=== PATIENT | male | born 1980 | race Caucasian/White ===

== ENCOUNTER → 2017-07-28 | Outpatient (CLI) | payer OTHER ==
--- NOTE | 2017-07-28 07:40 | US ---
EXAMINATION TYPE: US abdomen complete DATE OF EXAM: 07/28/2017 COMPARISON: NONE CLINICAL HISTORY: 37-year-old male R74.8 Elevated Liver Enzymes. TECHNIQUE: Multiple sonographic images of the abdomen are obtained. FINDINGS: Liver Length: 16.3 cm Gallbladder Wall: 0.1 cm CBD: 0.3 cm Spleen: 11.1 cm Right Kidney: 11.1 x 3.7 x 4.6 cm Left Kidney: 10.8 x 5.5. xx4.5 cm Pancreas: wnl Liver: Diffuse increased echogenicity. No focal lesion seen. Gallbladder: No abnormal gallbladder distention, wall thickening, pericholecystic fluid, or shadowing calculi. A couple 3 mm mural-based echogenic nodules are present along the anterior gallbladder wall . Evidence for sonographic Quintero's sign: No CBD: wnl Spleen: wnl Right Kidney: No hydronephrosis Left Kidney: No hydronephrosis Upper IVC: wnl Abd Aorta: wnl IMPRESSION: 1. Hepatic steatosis. Correlate with LFTs, lipid profile, and patient risk factors. 2. A couple 3 mm gallbladder wall polyps, probably cholesterol polyps.
== END | disposition home or self-care (01) ==
LOC: RADUSWWP 06:56
PROVIDERS: ATTEND Family Medicine
DX: K76.0 Fatty (change of) liver, not elsewhere classified (principal); K82.4 Cholesterolosis of gallbladder
CPT/HCPCS: 76700

== ENCOUNTER 2025-01-08 05:56 | Emergency (ER) | payer OTHER ==
[2025-01-08 06:06] VITALS: BP 124/83; PULSE 80; RESP 18; TEMP 97.5
[2025-01-08] MEDS: FLUORESCEIN STRIPS 1 MG STRIP RIGHT EYE ONE (06:15)
[2025-01-08] MEDS: PROPARACAINE 0.5% OPHTH DROPS 15 ML BTL RIGHT EYE STA (06:16)
--- NOTE | 2025-01-08 06:28 | ED ---
Eye Problem HPI - General Chief complaint: Eye Problems Stated complaint: rt eye pain Time Seen by Provider: 01/08/25 06:03 Source: patient, RN notes reviewed Mode of arrival: ambulatory Limitations: no limitations - History of Present Illness Initial comments: 44-year-old male presents emergency department chief complaint of right eye irritation. Patient states started after some sawdust got in both of his eyes he attempted to run tomorrow states she has had worsening irritation to his right eye he was seen in urgent care yesterday stated they could not find anything his tetanus up-to-date. Patient states that they gave him some antibiotic eyedrops. Patient states it is red, swollen very irritated from him messing with it. Patient denies any blurred vision no change in vision - Related Data Allergies Allergy/AdvReac Type Severity Reaction Status Date / Time bee pollen Allergy Anaphylaxis Verified 01/08/25 06:03 Review of Systems ROS Statement: Those systems with pertinent positive or pertinent negative responses have been documented in the HPI. ROS Other: All systems not noted in ROS Statement are negative. Past Medical History Past Medical History: Hypertension History of Any Multi-Drug Resistant Organisms: None Reported Past Surgical History: Hernia Repair Past Psychological History: No Psychological Hx Reported Smoking Status: Never smoker Past Alcohol Use History: None Reported Past Drug Use History: None Reported General Exam Limitations: no limitations General appearance: alert, in no apparent distress Head exam: Present: atraumatic, normocephalic, normal inspection Eye exam: Present: PERRL, EOMI, conjunctival injection (Severe injection right), other (Patient had full relief of symptoms after proparacaine eyedrops, fluorescein mild uptake in the 9 o'clock position). Absent: normal appearance, scleral icterus, periorbital swelling ENT exam: Present: normal exam, normal oropharynx, mucous membranes moist Neck exam: Present: normal inspection, full ROM. Absent: tenderness, meningismus, lymphadenopathy Respiratory exam: Present: normal lung sounds bilaterally. Absent: respiratory distress, wheezes, rales, rhonchi, stridor Cardiovascular Exam: Present: regular rate, normal rhythm, normal heart sounds. Absent: systolic murmur, diastolic murmur, rubs, gallop, clicks GI/Abdominal exam: Present: soft, normal bowel sounds. Absent: distended, tenderness, guarding, rebound, rigid Course Vital Signs 01/08/25 06:03 Temperature 97.5 F L Pulse Rate 80 Respiratory 18 Rate Blood Pressure 124/83 O2 Sat by Pulse 98 Oximetry Medical Decision Making - Medical Decision Making Was pt. sent in by a medical professional or institution (ANGELIKA Wilson, [employer], urgent care, hospital, or detention...) When possible be specific @ -No Did you speak to anyone other than the patient for history (EMS, parent, family, police, friend...)? What history was obtained from this source @ -No Did you review nursing and triage notes (agree or disagree)? Why? @ -I reviewed and agree with nursing and triage notes Were old charts reviewed (outside hosp., previous admission, EMS record, old EKG, old radiological studies, urgent care reports/EKG's, detention records)? Report findings @ -No old charts were reviewed Differential Diagnosis (chest pain, altered mental status, abdominal pain women, abdominal pain men, vaginal bleeding, weakness, fever, dyspnea, syncope, headache, dizziness, GI bleed, back pain, seizure, CVA, palpatations, mental health, musculoskeletal)? @Conjunctivitis, corneal foreign body, corneal abrasion, photokeratitis EKG interpreted by me (3pts min.). @ -None X-rays interpreted by me (1pt min.). @ -None done CT interpreted by me (1pt min.). @ -None done U/S interpreted by me (1pt. min.). @ -None done What testing was considered but not performed or refused? (CT, X-rays, U/S, labs)? Why? @ -None What meds were considered but not given or refused? Why? @ -None Did you discuss the management of the patient with other professionals (professionals i.e. ANGELIKA Wilson, [employer] ME[employer], lab, RT, psych nurse, psychosocial rehabilitation counselor, jewelry designer, teacher, industrial relations officer, director case management)? Give summary @ -No Was smoking cessation discussed for >3mins.? @ -No Was critical care preformed (if so, how long)? @ -No Were there social determinants of health that impacted care today? How? (Homelessness, low income, unemployed, alcoholism, drug addiction, transportation, low edu. Level, literacy, decrease access to med. care, longterm, rehab)? @ -No Was there de-escalation of care discussed even if they declined (Discuss DNR or withdrawal of care, Hospice)? DNR status @ -No What co-morbidities impacted this encounter? (DM, HTN, Smoking, COPD, CAD, Cancer, CVA, ARF, Chemo, Hep., AIDS, mental health diagnosis, sleep apnea, morbid obesity)? @ -None Was patient admitted / discharged? Hospital course, mention meds given and route, prescriptions, significant lab abnormalities, going to OR and other pertinent info. @ -discharge patient had full relief of symptoms with proparacaine he has no visual disturbances no ocular pressure. Patient does have what appears to be a very minimal corneal abrasion. Patient more has conjunctivitis irritation from rinsing, irritation. Patient discharged with eyedrops and return parameters syeda. Undiagnosed new problem with uncertain prognosis? @ -No Drug Therapy requiring intensive monitoring for toxicity (Heparin, Nitro, Insulin, Cardizem)? @ -No Were any procedures done? @ -No Diagnosis/symptom? @ -Corneal abrasion conjunctivitis Acute, or Chronic, or Acute on Chronic? @ -Acute Uncomplicated (without systemic symptoms) or Complicated (systemic symptoms)? @ -Uncomplicated Side effects of treatment? @ -No Exacerbation, Progression, or Severe Exacerbation? @ -No Poses a threat to life or bodily function? How? (Chest pain, USA, OR, pneumonia, PE, COPD, DKA, ARF, appy, cholecystitis, CVA, Diverticulitis, Homicidal, Suicidal, threat to staff... and all critical care pts) @ -No Disposition Clinical Impression: Corneal abrasion, Conjunctivitis Disposition: HOME SELF-CARE Condition: Stable Instructions (If sedation given, give patient instructions): Eye Foreign Body (ED) Additional Instructions: Please return to the Emergency Department if symptoms worsen or any other concerns. Is patient prescribed a controlled substance at d/c from ED?: No Referrals: Hilton Hogan MD [Primary Care Provider] - 1-2 days Time of Disposition: 06:28
[2025-01-08] MEDS: KETOTIFEN 0.025% OPHTH DROPS 5 ML BTL RIGHT EYE ONE (06:45)
[2025-01-08] MEDS: KETOROLAC 0.5% OPHTH DROPS 5 ML BTL RIGHT EYE ONE (06:46)
== END 2025-01-08 07:00 | disposition home or self-care (01) ==
LOC: EC 05:56
DX: S05.01XA Injury of conjunctiva and corneal abrasion without foreign body, right eye, initial encounter (principal); Z91.030 Bee allergy status; W31.2XXA Contact with powered woodworking and forming machines, initial encounter
CPT/HCPCS: 99283